=== PATIENT | male | born 1975 | race Caucasian/White ===

== ENCOUNTER 2025-02-01 03:03 | Emergency (ER) | payer MEDICARE, MEDICAID, SELFPAY ==
[2025-02-01 03:13] VITALS: BP 112/80; PULSE 100; RESP 19; TEMP 36.8; O2SAT 95; BMI 27.6
[2025-02-01] MEDS: LEVALBUTEROL RT 1.25 MG/0.5 ML NEBU 5 MG INH (03:49)
[2025-02-01] MEDS: IPRATROPIUM RT 0.5 MG/ 2.5 ML NEBU 1 MG INH (03:50)
[2025-02-01 03:56] VITALS: PULSE 102; RESP 16; O2SAT 97
[2025-02-01] MEDS: DEXAMETHASONE SOD PHOS INJ 10 MG/ML VIAL PO (04:02)
[2025-02-01] MEDS: AMOXICILLIN/POT CLAV 875 TABLET 1 TAB PO (04:02)
--- NOTE | 2025-02-01 04:43 | PD.EDURI ---
Upper Respiratory Inf. RME/HPI General Chief Complaint: Shortness of Breath/Dyspnea Stated Complaint: Cant breath, sinus infection Time Seen by Provider: 02/01/25 03:34 Arrival date/time: 02/01/25 03:03 49M with history of asthma/COPD presents to ED with several days of facial pain, nasal congestion, cough and SOB. Limitations: no limitations Related Data Previous Rx's ?Medication ?Instructions ?Recorded albuterol sulfate 2.5 mg/3 mL 2.5 mg (3 mL) inhalation QID PRN 11/25/21 (0.083 %) solution for nebulization shortness of breath or wheezing #75 mL albuterol sulfate 90 mcg/actuation 2 puff inhalation Q6H PRN cough / 11/25/21 aerosol inhaler wheezing #6.7 grams albuterol sulfate 90 mcg/actuation 2 puff inhalation QID #8.5 grams 12/31/21 aerosol inhaler albuterol sulfate 90 mcg/actuation 2 puff inhalation Q6H PRN 02/01/25 aerosol inhaler (Ventolin HFA) shortness of breath or wheezing #8.5 grams amoxicillin 875 mg-potassium 1 tab PO BID 7 days #14 tabs 02/01/25 clavulanate 125 mg tablet prednisone 50 mg tablet 50 mg PO QDAY 5 days #5 tabs 02/01/25 Allergies Allergy/AdvReac Type Severity Reaction Status Date / Time sumatriptan (From Imitrex) Allergy Severe Anaphylaxis Verified 05/16/23 12:28 Review of Systems Review of Systems Systems Reviewed: All systems reviewed, normal except as documented Constitutional Constitutional: Reports system reviewed and no additional complaints, except as documented, Denies fever(s) and Denies headache(s) ENT Ears, Nose, Mouth, and Throat: Reports as per HPI, Denies disequilibrium, Denies headache(s), Reports nasal congestion, Reports sinus pain and Reports sinus pressure Cardiovascular Cardiovascular: Reports system reviewed and no additional complaints, except as documented, Denies chest pain and Reports dyspnea Respiratory Respiratory: Reports system reviewed and no additional complaints, except as documented, Reports as per HPI, Reports cough and Reports dyspnea Gastrointestinal Gastrointestinal: Reports system reviewed and no additional complaints, except as documented, Denies abdominal pain, Denies nausea and Denies vomiting Neurologic Neurologic: Reports system reviewed and no additional complaints, except as documented, Denies confusion, Denies disequilibrium and Denies headache(s) Psychiatric Psychiatric: Denies confusion Past Medical History Past Medical History CARDIAC: Negative Congestive Heart Failure RESPIRATORY: Positive Chronic Obstructive Pulmonary Disease (COPD) and Asthma GENITOURINARY: Negative Renal Disease ENDOCRINE: Negative Diabetes Mellitus Type 1 or Diabetes Mellitus Type 2 Social History SMOKING STATUS: Light (< 1 pack/day) ED Exam General Limitations: Present no limitations General appearance: Present alert and in no apparent distress Head Head exam: Present atraumatic Eye Eye exam: Present normal appearance, PERRL and EOMI ENT ENT exam: Present normal oropharynx and mucous membranes moist Expanded ENT Exam Nose exam: Present sinus tenderness Neck Neck exam: Present normal inspection, full ROM and trachea midline Chest Chest inspection: Present normal inspection and symmetric chest wall rise Respiratory Respiratory exam: Present wheezes Cardiovascular Cardiovascular exam: Present regular rate, normal rhythm and normal heart sounds Abdominal Exam Abdominal exam: Present soft and normal bowel sounds Extremities Exam Extremities exam: Present normal inspection and full ROM Back Exam Back exam: Present normal inspection and full ROM Neurological Exam Neurological exam: Present alert, oriented X3 and CN II-XII intact Psychiatric Psychiatric exam: Present normal affect and normal mood Skin Skin exam: Present warm, dry, intact and normal color Course Quality Measures none Orders Category Date Time Status Amoxicillin/Pot Clav 875 [Augmentin 875] Med 02/01/25 03:35 Discontinued 1 tab PO X1 ONE Dexamethasone Inj [Decadron Inj] Med 02/01/25 03:35 Discontinued 10 mg PO X1 ONE Ipratropium Braxton Rt Tanika [Atrovent Rt Tanika] Med 02/01/25 03:36 Discontinued 1 mg INH X1 ONE Levalbuterol Rt [Xopenex Rt Tanika] Med 02/01/25 03:36 Discontinued 5 mg INH X1 ONE Sodium Chloride Rt Tanika 0.9% [NS Rt Tanika 0.9%] Med 02/01/25 03:36 Active 3 ml INH PRN PRN Vital Signs Vital signs: Vital Signs Temperature 98.2 F 02/01/25 03:13 Pulse Rate 100 02/01/25 03:13 Respiratory Rate 19 02/01/25 03:13 Blood Pressure 112/80 02/01/25 03:13 Pulse Oximetry (%) 95 02/01/25 03:13 Oxygen Delivery Method Room Air 02/01/25 03:13 O2 at 95% on RA and WNLs Upper Respiratory Infection MDM Narrative MDM Narrative:: 49M with history of asthma/COPD presents to ED with several days of facial pain, nasal congestion, cough and SOB. Physical exam reveals sinus tenderness. Wheezing and lungs. Patient is afebrile, calm, and alert. Meds relieved wheezing. Will given ABX to cover infectious sinusitis, which will also cover any PNA. Patient data External records reviewed:: [facility] previous records Clinical information provided by:: patient Social determinants that could affect healthcare access:: none Patient has the following chronic illnesses:: COPD/asthma How is presenting disease/condition affected by chronic disease/condition?: exacerbated by Evaluation data The following diagnostics were reviewed and interpreted by me:: other (specify) (none) Lab and/or radiology exams considered but not ordered:: not ordered Interpretation Summary: n/a Medications / Prescriptions Medications or Prescriptions considered but not ordered:: ordered Medication administrations:: Medication Administration History Sodium Chloride (Sodium Chloride Rt Tanika 0.9% 3 Ml Nebu) 3 ml INH PRN PRN PRN Reason: SOLN Stop: 03/03/25 03:35 Discontinued Medications Amoxicillin/Clavulanate Potassium (Amoxicillin/Pot Clav 875 Tablet) 1 tab PO X1 ONE Stop: 02/01/25 03:36 Last Admin: 02/01/25 04:02 Dose: 1 tab Documented By: SABRINA Dexamethasone Sodium Phosphate (Dexamethasone Sod Phos Inj 10 Mg/Ml Vial) 10 mg PO X1 ONE Stop: 02/01/25 03:36 Last Admin: 02/01/25 04:02 Dose: 10 mg Documented By: SABRINA Ipratropium Braxton (Ipratropium Rt 0.5 Mg/ 2.5 Ml Nebu) 1 mg INH X1 ONE Stop: 02/01/25 03:37 Last Admin: 02/01/25 03:50 Dose: 1 mg Documented By: LILIAN Levalbuterol HCl (Levalbuterol Rt 1.25 Mg/0.5 Ml Nebu) 5 mg INH X1 ONE Stop: 02/01/25 03:37 Last Admin: 02/01/25 03:49 Dose: 5 mg Documented By: LILIAN above Consultations Consultation(s) initiated? (list below): No Diagnosis Upper Respiratory Differential Diagnosis: upper respiratory infection, croup, otitis media, sinusitis, viral infection, bronchitis, influenza, pharyngitis and other (sinusitis and asthma exacerbation) Most likely diagnosis given after review of the tests above:: sinusitis and asthma exacerbation Admission Indicated Admission indicated?: not indicated Admission Request Was there a request for admission?: No Disposition Plan Disposition Plan: Discharge Discharge Attestation Discharge Attestation: The patient and all family members were given an opportunity to ask questions and understood the discharge instructions. Discharge instructions specifically effects, indications for sooner follow up or return to the emergency department, and the expected course of current diagnosis. Patient condition: Stable Discharge Plan Plan Patient Disposition: HOME (Self Care) Discharge Disposition comment: Stable Prescriptions/Referrals Prescriptions/Med Rec: New amoxicillin-pot clavulanate 875-125 mg tablet 1 tab PO BID 7 Days Qty: 14 0RF prednisone 50 mg tablet 50 mg PO QDAY 5 Days Qty: 5 0RF albuterol sulfate [Ventolin HFA] 90 mcg/actuation HFA aerosol inhaler 2 puff inhalation Q6H PRN (Reason: shortness of breath or wheezing) Qty: 8.5 0RF No Action albuterol sulfate 90 mcg/actuation HFA aerosol inhaler 2 puff INH Q6H PRN (Reason: cough / wheezing ) Qty: 6.7 0RF Rx Instructions: administer with spacer albuterol sulfate 2.5 mg /3 mL (0.083 %) solution for nebulization 2.5 mg inhalation QID PRN (Reason: shortness of breath or wheezing) Qty: 75 0RF albuterol sulfate 90 mcg/actuation HFA aerosol inhaler 2 puff inhalation QID Qty: 8.5 0RF Referrals: No Primary/Family,Physician [Primary Care Provider] - In 1 week Problem List Clinical Impression: Asthma with exacerbation, Sinusitis Patient/Caregiver Discharge Instructions Education Materials: ED Sinusitis (Antibiotic Treatment) Additional Instructions: Please follow-up with PCP within 24-48 hours and return immediately if symptoms worsen. Ibuprofen/Tylenol can be used simultaneously for greater fever/pain control. Print Language: Korean Stand Alone Forms: Patient Portal Info Letter SABRINA/KOBI Supervising Physician SABRINA/KOBI Supervising Physician: Dr. Saab
[2025-02-01 05:05] VITALS: BP 116/78; PULSE 98; RESP 17; TEMP 36.7; O2SAT 96
== END 2025-02-01 05:16 | disposition home or self-care (01) ==
PROVIDERS: Emergency Provider Emergency Medicine
DX: J45.901 Unspecified asthma with (acute) exacerbation (principal); J32.9 Chronic sinusitis, unspecified; F17.210 Nicotine dependence, cigarettes, uncomplicated
CPT/HCPCS: 94640; 94644; 99283; J1100; A9270